=== PATIENT | female | born 1985 | race Caucasian/White ===

== ENCOUNTER 2023-09-02 21:15 | Observation (INO) ==
[2023-09-02] MEDS ORDERED: SODIUM CHLORIDE 0.9% 1,000 ML IV SCH (21:30)
--- NOTE | 2023-09-02 21:30 | Emergency Department Note ---
Impression & Plan Weakness, Fatigue, Tachycardia, Acute dehydration, POTS (postural orthostatic tachycardia syndrome) ED Provider Note NAME: ANTHONY DENNY AGE: 37 SEX: F : 1985 ARRIVES VIA: Ambulance INFORMANT: [Patient][mother] ED PROVIDER(S): [Luis Macias MD] CHIEF COMPLAINT: Weakness HISTORY OF PRESENT ILLNESS: The patient is a 37-year-old female who presents to the ER with extreme fatigue and weakness that has escalated especially in the last 2 days. She was diagnosed with POTS last year and she has been suffering from fatigue and weakness ever since. 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 The patient pretty much lies in bed most of the time. Her mother is caring for her currently although the patient does live separately from her mother. The patient had some chest pain and palpitations yesterday. She felt short of breath yesterday. Things persisted today and she was too weak to even function. She presents for evaluation. There has been no fever or stuffy nose, no cough, no vomiting or diarrhea, no urinary complaints. PMHx/PSHx/Social Hx: See Below PHYSICAL EXAM: GENERAL: Patient is in no acute distress. Wearing earmuffs and a mask. Has sunglasses in place. HEENT: No acute trauma, normocephalic atraumatic, mucous membranes moist, no nasal congestion. NECK: No stridor, no adenopathy, no meningismus, trachea is midline. LUNGS: Clear to auscultation bilaterally, no wheeze, no rhonchi, breath sounds equal. HEART: Mildly tachycardic, regular rhythm, no murmurs. ABDOMEN: Soft, nontender, no peritonitis. EXTREMITIES: No cyanosis, full range of motion of all the joints without pain or difficulty. NEUROLOGIC: Oriented x 3, no acute motor or sensory deficits, no focal weakness. SKIN: No jaundice, no diaphoresis. DIFFERENTIAL DIAGNOSIS: Dehydration, electrolyte imbalance, dysrhythmia, anemia, UTI, viral illness, thyroid disorder, among others. EMERGENCY DEPARTMENT PROCEDURES: MEDICAL DECISION MAKING: There is no leukocytosis. Patient's hemoglobin is higher than expected, possibly from dehydration. There was a normal platelet count. D-dimer testing was negative. With a negative D-dimer and my low suspicion for PE, I will stop the workup for this diagnosis. There was a subtle anion gap and a lower CO2, these findings of course could be from dehydration. No renal failure. Lactic acid level was not elevated making severe sepsis less likely. No concerning liver enzyme elevation. Total CK was not elevated making rhabdomyolysis unlikely. The patient appeared to be in a euthyroid state. testing was negative. The patient appeared to be in a euthyroid state. ECG showed a sinus tachycardia, no acute ischemia. Cardiac enzyme testing x 1 was not consistent with acute cardiac injury. Urinalysis showed ketones consistent with dehydration, no findings of infection. Lyme disease testing was negative. Chest x-ray did not show mediastinal widening, pneumonia or pneumothorax. On exam, the patient was tachycardic. The patient received IV saline, 1 L. She was given a 500 cc lactated Ringer's bolus. The patient presents with increasing fatigue to the point where she can no longer care for herself. She does seem dehydrated by exam and by laboratory testing. Given the circumstances, she will be hospitalized for further hydration and care. I spoke with the and case management, the on-call hospitalist was consulted. Prior/Outside records/notes reviewed: Today's EMS notes describing her presentation and the transport to this ER. ECG per my interpretation: Indication was weakness. The ECG shows a sinus tachycardia with a rate of 106. There is some nonspecific ST change. There is no ST elevation, no PVCs. The QTc is 470. Continuous Cardiac Monitoring per my interpretation: An order was placed for continuous cardiac monitoring. The monitor shows a rate of 109 with sinus tachycardia. Imaging/x-ray results per my interpretation: Chest x-ray does not show mediastinal widening, pneumonia or pneumothorax. Chronic Medical/Social conditions affecting care: Chronic fatigue. Care/Management discussed with: Case management, the on-call hospitalist. Level of care consideration(s): After review of the information above and other included data: --I believe the patient requires escalation of care to admission DISPOSITION: Admission Past Med/Surg History Medical History POTS (postural orthostatic tachycardia syndrome) Social History Smoking Status: Never smoker Preferred Language: Luxembourgish Feels Safe at Home: Yes Allergies Allergies Allergy/AdvReac Type Severity Reaction Status Date / Time codeine Allergy Unknown Verified 09/03/23 00:14 mahin Allergy Unknown Verified 09/03/23 00:14 nirmatrelvir [From Paxlovid] Allergy Unknown Verified 09/03/23 00:14 ritonavir [From Paxlovid] Allergy Unknown Verified 09/03/23 00:14 Home Meds Home Medications Medication Instructions Recorded Confirmed fludrocortisone 0.1 mg tablet 0.05 mg PO QAM 09/02/23 09/03/23 norethindrone (contraceptive) 0.35 0.35 mg PO QAM 09/02/23 09/03/23 mg tablet rimegepant 75 mg disintegrating 75 mg PO UD PRN Migraine Headache 09/02/23 09/02/23 tablet (Nurtec ODT) multivitamin (Multiple Vitamins 1 tab PO DAILY 09/03/23 09/03/23 tablet) Results & Data (ED) Vital Signs Vital Signs - 24 hr 09/02/23 21:20 09/02/23 21:20 09/02/23 21:20 Temperature 36.8 C Temperature Source Oral Pulse Rate 105 H Pulse Rate [Apical] 105 H Pulse Rhythm Regular Pulse Rhythm [Apical] Regular Pulse Strength Normal Pulse Strength [Apical] Normal Respiratory Rate 15 15 Respiratory Effort / Characteristics Non-Labored Spontaneous Non-Labored Accessory Muscle Use Respiratory Depth Normal Normal Respiratory Pattern Regular Regular Blood Pressure 132/87 Blood Pressure [Right Arm] 132/87 Blood Pressure Mean 102 Blood Pressure Mean [Right Arm] 102 Blood Pressure Position Semi-fowlers Blood Pressure Position [Right Arm] Semi-fowlers Pulse Oximetry 98 99 99 Oxygen Delivery Method Room Air Room Air Room Air Sepsis Recent Fever Within 48 Hours No Sepsis New/Unexplained Change in Mental Status N/A Sepsis Action Taken by Nursing No Action Required 09/02/23 21:37 09/02/23 21:38 09/02/23 23:02 Temperature Temperature Source Pulse Rate 105 H 100 H Pulse Rate [Apical] 92 H Pulse Rhythm Regular Pulse Rhythm [Apical] Regular Pulse Strength Pulse Strength [Apical] Normal Respiratory Rate 15 16 Respiratory Effort / Characteristics Non-Labored Spontaneous Respiratory Depth Normal Respiratory Pattern Regular Blood Pressure Blood Pressure [Right Arm] 132/89 Blood Pressure Mean Blood Pressure Mean [Right Arm] 103 Blood Pressure Position Blood Pressure Position [Right Arm] Lying Pulse Oximetry 99 97 Oxygen Delivery Method Room Air Room Air Sepsis Recent Fever Within 48 Hours Sepsis New/Unexplained Change in Mental Status Sepsis Action Taken by Custodial Medications Current Medication List: was personally reviewed by me Laboratory Data Attestation: I reviewed the patient's lab results. 09/02/23 21:26 09/02/23 21:26 Lab Results 09/02/23 09/02/23 09/03/23 Range/Units 21:26 21:33 00:49 WBC 7.94 (4.8-10.8) K/ul RBC 5.46 H (4.20-5.40) M/uL Hgb 16.3 H (12.0-16.0) g/dl Hct 47.4 H (37.0-47.0) % MCV 86.8 (80.0-100.0) fL MCH 29.9 (25.0-34.0) pg MCHC 34.4 (32.0-36.0) g/dL RDW Std Deviation 38.0 (36.4-46.3) fL RDW Coeff of Eddie 11.9 (11.5-14.5) % Plt Count 393 (130-400) K/uL MPV 10.0 (9.4-12.4) fL Immature Gran % (Auto) 0.5 % Neut % (Auto) 62.1 % Lymph % (Auto) 25.2 % [place] % (Auto) 8.9 % Eos % (Auto) 2.8 % Baso % (Auto) 0.5 % Neut # (Auto) 4.93 (1.40-6.50) K/uL Lymph # (Auto) 2.00 (1.20-3.40) K/uL [place] # (Auto) 0.71 H (0.11-0.59) K/uL Eos # (Auto) 0.22 (0.00-0.50) K/uL Baso # (Auto) 0.04 (0.00-0.20) K/uL Immature Gran # (Auto) 0.04 (0.01-0.20) K/uL D-Dimer < 190 (0-500) ug/L FEU Sodium 135 L (136-145) mmol/L Potassium 3.6 (3.5-5.1) mmol/L Chloride 103 (98-107) mmol/L Carbon Dioxide 15 L (21-32) mmol/L Anion Gap 17 H (3-11) BUN 15 (6-23) mg/dl Creatinine 1.03 (0.6-1.2) mg/dl Est Cr Clr Drug Dosing 64.9 ml/min Est GFR ( Amer) 80.4 ml/min Est GFR (Non-Af Amer) 69.4 ml/min BUN/Creatinine Ratio 14.6 (10-20) Glucose 93 (70-99(Fasting)) mg/dl Lactate 1.5 (0.4-2.0) mmol/L Calcium 9.0 (8.6-10.3) mg/dl Phosphorus 3.5 (2.5-4.9) mg/dl Magnesium 2.1 (1.7-2.4) mg/dl Total Bilirubin 0.5 (0.2-1.0) mg/dl AST 15 (13-39) U/L ALT 14 (7-52) U/L Alkaline Phosphatase 65 (34-104) U/L Total Creatine Kinase 38 (26-192) U/L Troponin I High Sens 6.1 (0-14) pg/ml Total Protein 7.4 (6.0-8.3) gm/dl Albumin 4.3 (3.4-5.0) gm/dl Globulin 3.1 (2.5-4.0) gm/dl Albumin/Globulin Ratio 1.4 (0.9-2) TSH 3.573 (0.300-4.500) uIu/ml HCG, Qual Negative (Negative) Urine Color Yellow Urine Appearance Clear (Clear) Urine pH 5.0 (4.5-7.5) Ur Specific [place] 1.010 (1.000-1.030) Urine Protein Negative (Negative) Urine Glucose (UA) Negative (Negative) Urine Ketones 3+ H (Negative) Urine Blood Negative (Negative) Urine Nitrite Negative (Negative) Urine Bilirubin Negative (Negative) Urine Urobilinogen Negative (Negative) Ur Leukocyte Esterase Trace H (Negative) Urine WBC (Auto) 1-5 (0-5) /hpf Urine RBC (Auto) 0-4 (0-4) /hpf U Hyaline Cast (Auto) 0 (0-5) /lpf U Epithel Cells (Auto) 10-20 H (0-5) /lpf Urine Bacteria (Auto) Negative (Negative) Lyme Disease IgG Ab Negative (Negative) Lyme Disease IgM Ab Negative (Negative) Administered Medications Discontinued Medications Sodium Chloride (Nss) 1,000 mls @ 999 mls/hr IV .Q1H1M VIGNESH Stop: 09/02/23 22:30 Last Infusion: 09/03/23 00:15 Dose: Infused Documented By: [email or web address] Admin: 09/02/23 22:16 Dose: 999 mls/hr Documented By: SPARKLE Lactated Ringer's (Lr) 500 mls @ 999 mls/hr IV .Q31M ONE Stop: 09/03/23 00:17 Last Infusion: 09/03/23 00:53 Dose: Infused Documented By: Admin: 09/02/23 23:54 Dose: 999 mls/hr Documented By: MAREK Discharge Plan Visit Data Chief Complaint: Weakness Stated Complaint: weakness ED Provider: Luis Macias Discharge Problem: Weakness, Fatigue, Tachycardia, Acute dehydration, POTS (postural orthostatic tachycardia syndrome) Patient Disposition: Admitted As Inpatient Condition: Fair Forms Stand Alone Forms: [facility] Prescriptions Prescriptions: No Action norethindrone (contraceptive) 0.35 mg tablet 0.35 mg PO QAM fludrocortisone 0.1 mg tablet 0.05 mg PO QAM Rx Instructions: takes half a tablet although ordered whole Nurtec ODT 75 mg tablet,disintegrating 75 mg PO UD PRN (Reason: Migraine Headache) multivitamin [Multiple Vitamins] Tablet 1 tab PO DAILY Referrals Referrals: PCP,NO [Physician] - Discharge Problem: Fatigue Qualifiers: Fatigue type: unspecified Qualified Code(s): R53.83 - Other fatigue
[2023-09-02 21:55] LABS: Basophils # (auto) 0.04 K/uL (0.00-0.20); Basophils % (auto) 0.5 %; Eosinophils # (auto) 0.22 K/uL (0.00-0.50); Eosinophils % (auto) 2.8 %; Hematocrit (blood only) 47.4 % (37.0-47.0); Hemoglobin 16.3 g/dl (12.0-16.0); Immature Granulocytes # (auto) 0.04 K/uL (0.01-0.20); Immature Granulocytes % (auto) 0.5 %; Lymphocytes % (auto) 25.2 %; Mean Corpuscular Hemoglobin 29.9 pg (25.0-34.0); Mean Corpuscular Hgb Conc 34.4 g/dL (32.0-36.0); Mean Corpuscular Volume 86.8 fL (80.0-100.0); Monocytes # (auto) 0.71 K/uL (0.11-0.59); Monocytes % (auto) 8.9 %; Neutrophils # (auto) 4.93 K/uL (1.40-6.50); Neutrophils % (auto) 62.1 %; Platelet Count 393 K/uL (130-400); RDW Coefficient of Variation 11.9 % (11.5-14.5); Red Blood Count 5.46 M/uL (4.20-5.40); White Blood Count 7.94 K/ul (4.8-10.8)
[2023-09-02 22:03] LABS: Albumin Globulin Ratio 1.4 (0.9-2); Albumin Level 4.3 gm/dl (3.4-5.0); BUN Creatinine Ratio 14.6 (10-20); Bilirubin,Total 0.5 mg/dl (0.2-1.0); Creatinine Clr Calc Pharmacy 64.9 ml/min; Est GFR (African American) 80.4 ml/min; Est GFR (Non-African American) 69.4 ml/min; Globulin 3.1 gm/dl (2.5-4.0); Magnesium 2.1 mg/dl (1.7-2.4); Phosphorus 3.5 mg/dl (2.5-4.9); Potassium 3.6 mmol/L (3.5-5.1); Total Protein 7.4 gm/dl (6.0-8.3)
[2023-09-02 22:04] LABS: Pregnancy Test, Serum Negative (Negative)
[2023-09-02 22:07] LABS: Troponin I High Sensitivity 6.1 pg/ml (0-14)
[2023-09-02 22:11] LABS: D Dimer < 190 ug/L FEU (0-500)
[2023-09-02 22:16] LABS: Thyroid Stimulating Hormone 3.573 uIu/ml (0.300-4.500)
[2023-09-02 22:49] LABS: Lyme Ab IgG w/WB Rflx Negative (Negative); Lyme Ab IgM w/WB Rflx Negative (Negative)
[2023-09-02] MEDS ORDERED: LACTATED RINGER'S 500 ML IV ONE (23:47)
[2023-09-03 01:06] LABS: Appearance Urine Clear (Clear); Bacteria Urine Automated Negative (Negative); Bilirubin Urine Negative (Negative); Blood Urine Negative (Negative); Cast Urine Automated 0 /lpf (0-5); Color Urine Yellow; Glucose Urine UA Negative (Negative); Ketones Urine 3+ (Negative); Leukocyte Esterase Urine Trace (Negative); Nitrite Urine Negative (Negative); Protein Urine Negative (Negative); RBC Urine Automated 0-4 /hpf (0-4); Urobilinogen Urine Negative (Negative)
--- NOTE | 2023-09-03 02:02 | History & Physical Report ---
Date of Service September 03, 2023 Assessment & Plan (1) POTS (postural orthostatic tachycardia syndrome): Plan: 38yo female with severe POTS and Chronic Fatigue presenting from home with inability to care for herself. She is very debilitated - spends her time at home in bed. Is very sensitive to light and sound. She has not been out of bed for several days - uses a bed pain. 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 Her mother has been taking care of her but has been unable as of late -Observation to medical -Will check CRP, B12, Folate B1 and ACTH -Continue hydration - LR at 80mL/hr x 2L -Thiamine 100mg IV daily -Vitamin C 500mg po daily -PT/OT evaluation -Continue home Fludrocortisone -Will initiate Methylphenidate 5mg po daily - this was recommended by her PCP - patient has been reluctant to start this due to concern for side effects. Is comfortable starting this medication while in a monitored setting -Mother will bring in patient's supplements from home to be taken here Patient takes D-ribose, Acetyl L-carnitine, Co-Q10 and Nepali Ginseng powder and extract as well as Magnesium, Cranberry and Vitamin C. Handwritten paper provided by patient's mother with detailed instructions. Patient has significant dietary intolerances. She mostly eats ketogenic diet but reports she tries to limit her intake to eggs, chicken, tuna, sauerkraut, peanut butter, almond butter, blueberries, kale, V8 juice keto/coconut yogurt, banana and canola oil Patient may benefit from referral to [facility] - [facility] or [facility]? (2) Weakness: Plan: Unsure if acute on chronic or simply chronic fatigue and weakness -As above, IVF with Thiamine and Vitamin C -Initiate Methylphenidate (3) Acute dehydration: Plan: Will provide IVF - LR at 80mL/hr x 2L Repeat labs in AM History of Present Illness Chief Complaint: chronic fatigue Primary Care Provider: DO Barbara Cortes Prakash is a 38yo female with history of POTS and Chronic Fatigue presenting from home with inability to care for herself. Marco A reports that she has very severe chronic fatigue syndrome which is likely secondary to long Covid - she had Covid for the second time in the Summer of 2021. She is very debilitated. She has significant photophobia as well as phonophobia. She has been unable to get out of bed or even sit on the commode for several days. Patient's mother has been taking care of her at home but is having some difficulty. Patient has had increased weakness as well as fatigue and nausea. She had a brief episode of elevated HR today to 141bpm with no associated chest pain, dizziness or syncope She has persistent nausea and poor appetite In the ER she is afebrile, HD stable Allergies Allergy/AdvReac Type Severity Reaction Status Date / Time codeine Allergy Unknown Verified 09/03/23 00:14 mahin Allergy Unknown Verified 09/03/23 00:14 nirmatrelvir [From Paxlovid] Allergy Unknown Verified 09/03/23 00:14 ritonavir [From Paxlovid] Allergy Unknown Verified 09/03/23 00:14 Home Medications Medication Instructions Recorded Confirmed Type fludrocortisone 0.1 mg tablet 0.05 mg PO QAM 09/02/23 09/03/23 History norethindrone (contraceptive) 0.35 0.35 mg PO QAM 09/02/23 09/03/23 History mg tablet rimegepant 75 mg disintegrating 75 mg PO UD PRN Migraine Headache 09/02/23 09/02/23 History tablet (Nurtec ODT) multivitamin (Multiple Vitamins 1 tab PO DAILY 09/03/23 09/03/23 History tablet) Past Med/Surg History Medical History POTS (postural orthostatic tachycardia syndrome) Surgical History (Updated 09/03/23 @ 05:01 by Amy Stack DO) History of dental surgery Family History (Updated 09/03/23 @ 05:01 by Amy Stack DO) Other Hypothyroid Social History (Updated 09/03/23 @ 05:02 by Amy Stack DO) Smoking Status: Never smoker Hx Alcohol Use: No Hx Substance Use: No Preferred Language: Sinhala Communication Ability: Effective Machine Bobbin Winder Required: No Beliefs That Will Affect Care: None Current Living Situation: Alone Current Living Situation Comment: Mom stays with her a lot Feels Safe at Home: Yes Assistive Devices: Glasses Review of Systems Review of Systems: All systems reviewed & are unremarkable except as noted in HPI & below Physical Exam Physical Exam: General: patient seen laying in supine position - noise cancelling headphones and sunglasses in place. She asks that we speak in low voices due to sound sensitivity Skin: warm, dry, intact, no rashes or lesions HEENT: NC/AT, PERRL, EOMI, anicteric sclera, conjunctiva without injection, external ear normal to inspection and nontender, nares patent, [id number] mask in place - patient prefers not to remove it, neck supple, trachea midline, no LAD, no thyromegaly, no JVD Heart: +S1/S2, regular, no m/r/g Lungs: equal air entry bilaterally, no rales/rhonchi/wheezes Abd: +BS, soft, NT/ND, no masses/organomegaly/ascites Ext: warm, 2+ pulses in UE/LE bilaterally, no clubbing/cyanosis or edema Neuro: severe generalized weakness Results & Data Results & Data Vital Signs (Past 12 Hours) Vital Signs Temp Pulse Pulse Resp BP BP Pulse Ox 09/03/23 01:32 74 09/02/23 23:02 92 H 16 132/89 97 09/02/23 21:38 100 H 09/02/23 21:37 105 H 15 99 09/02/23 21:20 36.8 C 105 H 15 132/87 99 09/02/23 21:20 99 09/02/23 21:20 105 H 15 132/87 98 O2 Del Method 09/03/23 01:32 09/02/23 23:02 Room Air 09/02/23 21:38 09/02/23 21:37 Room Air 09/02/23 21:20 Room Air 09/02/23 21:20 Room Air 09/02/23 21:20 Room Air Laboratory Results Laboratory Results WBC 7.94 K/ul (4.8-10.8) 09/02/23 21:26 RBC 5.46 M/uL (4.20-5.40) H 09/02/23 21:26 Hgb 16.3 g/dl (12.0-16.0) H 09/02/23 21:26 Hct 47.4 % (37.0-47.0) H 09/02/23 21:26 MCV 86.8 fL (80.0-100.0) 09/02/23 21:26 MCH 29.9 pg (25.0-34.0) 09/02/23: MCHC 34.4 g/dL (32.0-36.0) 09/02/23: RDW Std Deviation 38.0 fL (36.4-46.3) 09/02/23: RDW Coeff of Eddie 11.9 % (11.5-14.5) 09/02/23: Plt Count 393 K/uL (130-400) 09/02/23: MPV 10.0 fL (9.4-12.4) 09/02/23: Immature Gran % (Auto) 0.5 % 09/02/23: Neut % (Auto) 62.1 % 09/02/23: Lymph % (Auto) 25.2 % 09/02/23: [place] % (Auto) 8.9 % 09/02/23: Eos % (Auto) 2.8 % 09/02/23: Baso % (Auto) 0.5 % 09/02/23: Neut # (Auto) 4.93 K/uL (1.40-6.50) 09/02/23: Lymph # (Auto) 2.00 K/uL (1.20-3.40) 09/02/23: [place] # (Auto) 0.71 K/uL (0.11-0.59) H 09/02/23: Eos # (Auto) 0.22 K/uL (0.00-0.50) 09/02/23: Baso # (Auto) 0.04 K/uL (0.00-0.20) 09/02/23: Immature Gran # (Auto) 0.04 K/uL (0.01-0.20) 09/02/23: D-Dimer < 190 ug/L FEU (0-500) 09/02/23: Sodium 135 mmol/L (136-145) L 09/02/23: Potassium 3.6 mmol/L (3.5-5.1) 09/02/23: Chloride 103 mmol/L (98-107) 09/02/23: Carbon Dioxide 15 mmol/L (21-32) L 09/02/23: Anion Gap 17 (3-11) H 09/02/23: BUN 15 mg/dl (6-23) 09/02/23 21: Creatinine 1.03 mg/dl (0.6-1.2) 09/02/23: Est Cr Clr Drug Dosing 64.9 ml/min 09/02/23 21: Est GFR ( Amer) 80.4 ml/min 09/02/23: Est GFR (Non-Af Amer) 69.4 ml/min 09/02/23: BUN/Creatinine Ratio 14.6 (10-20) 09/02/23: Glucose 93 mg/dl (70-99(Fasting)) 09/02/23: Lactate 1.5 mmol/L (0.4-2.0) 09/02/23:33 Calcium 9.0 mg/dl (8.6-10.3) 09/02/23: Phosphorus 3.5 mg/dl (2.5-4.9) 09/02/23: Magnesium 2.1 mg/dl (1.7-2.4) 09/02/23: Total Bilirubin 0.5 mg/dl (0.2-1.0) 09/02/23: AST 15 U/L (13-39) 09/02/23: ALT 14 U/L (7-52) 09/02/23: Alkaline Phosphatase 65 U/L (34-104) 09/02/23 21: Total Creatine Kinase 38 U/L (26-192) 09/02/23 21: Troponin I High Sens 6.1 pg/ml (0-14) 09/02/23: Total Protein 7.4 gm/dl (6.0-8.3) 09/02/23: Albumin 4.3 gm/dl (3.4-5.0) 09/02/23: Globulin 3.1 gm/dl (2.5-4.0) 09/02/23: Albumin/Globulin Ratio 1.4 (0.9-2) 09/02/23: TSH 3.573 uIu/ml (0.300-4.500) 09/02/23 21: HCG, Qual Negative (Negative) 09/02/23 21: Urine Color Yellow 09/03/23 00:49 Urine Appearance Clear (Clear) 09/03/23 00:49 Urine pH 5.0 (4.5-7.5) 09/03/23 00:49 Ur Specific [place] 1.010 (1.000-1.030) 09/03/23 00:49 Urine Protein Negative (Negative) 09/03/23 00:49 Urine Glucose (UA) Negative (Negative) 09/03/23 00:49 Urine Ketones 3+ (Negative) H 09/03/23 00:49 Urine Blood Negative (Negative) 09/03/23 00:49 Urine Nitrite Negative (Negative) 09/03/23 00:49 Urine Bilirubin Negative (Negative) 09/03/23 00:49 Urine Urobilinogen Negative (Negative) 09/03/23 00:49 Ur Leukocyte Esterase Trace (Negative) H 09/03/23 00:49 Urine WBC (Auto) 1-5 /hpf (0-5) 09/03/23 00:49 Urine RBC (Auto) 0-4 /hpf (0-4) 09/03/23 00:49 U Hyaline Cast (Auto) 0 /lpf (0-5) 09/03/23 00:49 U Epithel Cells (Auto) 10-20 /lpf (0-5) H 09/03/23 00:49 Urine Bacteria (Auto) Negative (Negative) 09/03/23 00:49 Lyme Disease IgG Ab Negative (Negative) 09/02/23 21: Lyme Disease IgM Ab Negative (Negative) 09/02/23 21:26 Diagnostic Findings CXR with no acute process PG Care Time/CCT Total # of Minutes Spent Total Time Spent with Patient: Total time spent is greater than 50% in coordination of care (as documented) at patient's floor/unit and/or counseling patient: Coding Level of Care Code 82205 INT INP/OBS CARE 2/55MIN Diagnoses POTS (postural orthostatic tachycardia syndrome) G90.A Weakness R53.1 Acute dehydration E86.0
[2023-09-03] MEDS ORDERED: ACETAMINOPHEN 325 MG TAB PO PRN (04:30)
[2023-09-03] MEDS ORDERED: LACTATED RINGER'S 1,000 ML IV SCH (04:30)
[2023-09-03] MEDS ORDERED: ONDANSETRON INJ 2 MG/ML 2 ML VIAL IV PRN (04:30)
[2023-09-03 06:21] LABS: Folate (Folic Acid),Ser orPlas > 22.30 ng/ml (>5.38); Vitamin B12 745 pg/ml (180-914)
--- NOTE | 2023-09-03 07:13 | XRay Report ---
XR chest 1V portable HISTORY: 38 years-old Female weakness acute weakness COMPARISON: None TECHNIQUE: AP view of the chest FINDINGS: Cardiomediastinal and hilar silhouettes are within normal limits. No pneumothorax, pleural effusion, airspace consolidation or pulmonary edema. Bones of the chest appear normal. IMPRESSION: No acute process. ACT 112: Negative or not required by law. The above report was generated using voice recognition software. It may contain grammatical, syntax o r spelling errors. Electronically signed by: Flynn Roach M.D. 09/03/2023 7:11 AM
[2023-09-03] MEDS ORDERED: FLUDROCORTISONE ACETATE 0.1 MG TAB PO SCH (09:00)
[2023-09-03] MEDS ORDERED: THIAMINE HCL 100 MG TAB PO SCH (09:00)
[2023-09-03] MEDS ORDERED: ASCORBIC ACID 500 MG TAB PO SCH (09:00)
[2023-09-03] MEDS ORDERED: METHYLPHENIDATE HCL 5 MG TABLET PO SCH (09:00)
[2023-09-03] MEDS ORDERED: methylPREDNISolone 40 MG in SYRINGE 0 ML IV SCH (12:00)
[2023-09-03] MEDS ORDERED: PATIENT'S OWN ORAL CONTRACEPTIVE PO SCH (12:15)
[2023-09-03 13:34] LABS: Immunoglobulin A 292.2 mg/dl (70-400); Immunoglobulin G 1078.4 mg/dl (635-1741); Immunoglobulin M 129.3 mg/dl (45-281)
--- NOTE | 2023-09-03 13:47 | Discharge Summary ---
Date of Service September 03, 2023 Admission HPI Per Admitting Provider Barbara Randall is a 38yo female with history of POTS and Chronic Fatigue presenting from home with inability to care for herself. Marco A reports that she has very severe chronic fatigue syndrome which is likely secondary to long Covid - she had Covid for the second time in the Summer of 2021. She is very debilitated. She has significant photophobia as well as phonophobia. She has been unable to get out of bed or even sit on the commode for several days. Patient's mother has been taking care of her at home but is having some difficulty. Patient has had increased weakness as well as fatigue and nausea. She had a brief episode of elevated HR today to 141bpm with no associated chest pain, dizziness or syncope She has persistent nausea and poor appetite In the ER she is afebrile, HD stable Principal Diagnosis Volume depletion, failure to thrive, postural orthostatic tachycardia syndrome, long COVID syndrome Discharge Exam General-alert and oriented x3, no fevers, no chills HEENT-head atraumatic and normocephalic, pupils equal and reactive to light, extraocular muscles intact. Wearing sound deadening earphones and sunglasses Neck-no lymphadenopathy or thyromegaly, trachea midline Chest-clear to auscultation. No rales, wheezing or rhonchi Cardiac-regular rate and rhythm, normal S1 and S2 Abdomen-normal bowel sounds, nontender, no hepatosplenomegaly Extremities-no cyanosis, clubbing, or edema Neuro-cranial nerves II through XII intact, motor and sensory function within normal limits, strength symmetrical with generalized weakness, no focal deficits Psych-flat affect Discharge Data Allergies Allergy/AdvReac Type Severity Reaction Status Date / Time mahin Allergy Unknown Verified 09/03/23 08:38 codeine Allergy Rash Verified 09/03/23 08:38 nirmatrelvir [From Paxlovid] Allergy Unknown Verified 09/03/23 08:38 ritonavir [From Paxlovid] Allergy Unknown Verified 09/03/23 08:38 Consultations 09/03/23 00:37 ED Decision to Admit Stat Hospital Course (1) POTS (postural orthostatic tachycardia syndrome): Would not start Ritalin at this time due to recurrent tachycardia. Symptomatic care (2) Chronic [id number] syndrome: Lengthy discussion with mother and patient. They want to go home saying the hospital is just too noisy and busy for them. They will try a tapering dose of oral prednisone at discharge and continue multiple supplements they are currently taking. (3) Chronic fatigue: Supportive care. She refused OT and PT evaluation Plan Home today, September 03. Trial of prednisone tapering dose at discharge. Continue other supplements as before. Follow-up with PCP as soon as possible Total Time Total Time Spent Total Time Spent (In Minutes): 45 minutes Discharge Plan Discharge Items Patient Disposition: Home - Self-Care Reason For Visit: FATIGE, DEHYDRATION Discharge Diagnosis: Volume depletion, failure to thrive, post COVID syndrome Condition on Discharge: Fair Activity: Resume your previous activity Non-emergency contact: Primary Care Provider Call non-emergency contact if: you have any medication questions Follow-up/Referrals: Maia Amaro DO [Primary Care Provider] - Diet: Regular Addtl Attending Provider Instructions: Trial of prednisone tapering dose as directed Pending Studies at Discharge: Yes Studies:: Multiple lab tests are pending Stand-Alone Forms: [facility], Smoking Cessation Medications and DC Order Prescriptions: New prednisone 10 mg tablet See Rx Instructions .ROUTE .COMPLEX Qty: 12 0RF Rx Instructions: 10 mg orally 3 times a day for 2 days, then 10 mg twice a day for 2 days, then 10 mg once a day for 2 days, then stop Continued quercetin 500 mg capsule 500 mg PO DAILY magnesium citrate,mag oxide 250 mg capsule 250 mg PO DAILY vitamin b100 complex multivitamin 100 mg PO DAILY coenzyme Q10 100 mg capsule 100 mg PO DAILY curcumin-phosphatidylcholine 500 mg capsule 500 mg PO DAILY Rx Instructions: Tumeric diphenhydramine HCl [Benadryl Allergy] 25 mg tablet 25 mg PO QPM PRN (Reason: Sleep) Rx Instructions: uses to help reduce histamines from long covid. ascorbic acid (vitamin C) 1,000 mg PO BID Patient Comments: wants to know if 2000 mg is okay to take cholecalciferol (vitamin D3) 25 mcg PO DAILY melatonin 1 mg PO HS PRN (Reason: Sleep) norethindrone (contraceptive) 0.35 mg tablet 0.35 mg PO QAM fludrocortisone 0.1 mg tablet 0.05 mg PO QAM Rx Instructions: takes half a tablet although ordered whole Nurtec ODT 75 mg tablet,disintegrating 75 mg PO UD PRN (Reason: Migraine Headache) multivitamin [Multiple Vitamins] Tablet 1 tab PO DAILY Rx Instructions: prefers one with no iron cranberry 500 mg Capsule 500 mg PO .@LUNCH D-Ribofe 1,500 mg PO UD Rx Instructions: with breakfast and after lunch Acetyl L-Carnitine 500 mg PO DAILY ginseng 250 mg Capsule 250 mg PO DAILY Rx Instructions: 250 extract and 250 mg powder cyanocobalamin (vitamin B-12) 500 mg PO QAM Rx Instructions: drops in water fexofenadine 90 mg PO DAILY Discharge Orders: Discharge Order (Routine); Ordered 09/03/23 Ordered By: Italo Christie Admission Data Admit Date/Time: 09/03/23 02:02 Attending Provider: Italo Christie Admit Provider: Amy Stack Primary Care Provider: Maia Amaro Other Providers: Demetrice Grant; Amy Stack Coding Level of Care Code 52491 INP/OBS DISCH >30 MIN Diagnoses POTS (postural orthostatic tachycardia syndrome) G90.A Chronic [id number] syndrome U09.9 Chronic fatigue R53.82
--- NOTE | 2023-09-03 16:28 | Electrocardiogram Report ---
Test Reason : Blood Pressure : / mmHG Vent. Rate : 106 BPM Atrial Rate : 106 BPM P-R Int : 134 ms QRS Dur : 080 ms QT Int : 354 ms P-R-T Axes : 078 076 060 degrees QTc Int : 470 ms Sinus tachycardia Biatrial enlargement Nonspecific ST abnormality Abnormal ECG No previous ECGs available Confirmed by Rosalio Flowers ([id number]) on 09/03/2023 4:28:00 PM Referred By: REFERRED SELF Confirmed By:John Flowers
--- OUTSIDE RECORDS SUMMARY | 2023-09-03 22:52 | External Medical Summary | Continuity of Care Document ---
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 [id number] Date(s): 08/01/23 - 08/01/23 [facility] 0 [facility] [address] [facility], [facility] [address] [place] [address] [phone] Encounter Diagnosis Chronic fatigue syndrome(Discharge Diagnosis) - 08/01/23 Long COVID(Discharge Diagnosis) - 08/01/23 Discharge Disposition: Home or Self Care Attending Physician: MD Carson, Rogelio B Allergies, Adverse Reactions, Alerts Substance Reaction Severity Status codeine sore throat and rash Active mangoes unkown Active Assessment and Plan Extracted from: Title:Office Visit Note Author:DO Amaro Audrey Date:08/01/23 1.Chronic fatigue syndrome Wrote work excuse note for 6 months, discussed with patient and dad this may not be accepted, if needed they can have additional paperwork faxed over. For upcoming MRI prescribed ativan 0.5mg to be taking prior to MRI. Recommend patient wear ear plugs as well. For upcoming car trip to parents they may try dramamine, do not take benadryl at the same time. Discussed with patient she is already seeing specialists, I do not have additional tests to recommend at this time. Patient's dad to send in address of hyperbaric oxygen therapy to send script. Will discuss usage of duloxetine/venlafaxine or other psychiatric help further on patient portal. Patient's father requests to be called at [phone] 2.Long COVID Immunizations Given and Recorded Vaccine Date Status Refusal Reason influenza virus vaccine, inactivated 04/26/22 Give n influenza virus vaccine, inactivated 05/13/20 Paras rded influenza virus vaccine, inactivated 05/13/19 Paras rded influenza virus vaccine, inactivated 05/13/18 Paras rded SARS-CoV-2 (COVID-19) mRNA-1273 vaccine 07/13/21 R ecorded SARS-CoV-2 (COVID-19) mRNA BNT-162b2 vax 12/20/20 Recorded SARS-CoV-2 (COVID-19) mRNA BNT-162b2 vax 11/29/20 Recorded yellow fever vaccine 07/15/12 Recorded typhoid vaccine, inactivated 07/15/12 Recorded hepatitis A pediatric vaccine 07/15/12 Recorded hepatitis A pediatric vaccine 01/12/12 Recorded hepatitis B pediatric vaccine 01/12/12 Recorded tetanus/diphtheria/pertuss, acel (Tdap) 01/12/12 R ecorded human papillomavirus vaccine 06/13/06 Recorded meningococcal conjugate vaccine 01/17/03 Recorded poliovirus vaccine, inactivated 02/26/91 Recorded poliovirus vaccine, inactivated 1 02/10/91 Recorde d poliovirus vaccine, inactivated 04/01/87 Recorded poliovirus vaccine, inactivated 01/07/86 Recorded poliovirus vaccine, inactivated 85 Recorded diphtheria/tetanus/pertuss, acel (DTaP) 02/26/91 R ecorded diphtheria/tetanus/pertuss, acel (DTaP) 04/01/87 R ecorded diphtheria/tetanus/pertuss, acel (DTaP) 03/03/86 R ecorded diphtheria/tetanus/pertuss, acel (DTaP) 01/07/86 R ecorded diphtheria/tetanus/pertuss, acel (DTaP) 85 R ecorded mumps virus vaccine 02/10/91 Recorded measles virus vaccine 02/10/91 Recorded measles/mumps/rubella virus vaccine 12/07/86 Recor ded 1Result Comment: Oral polio vaccine Medications Adult Aspirin Start: 12/08/20 15:51:00 EDT Start Date: 12/08/20 Status: Ordered Emeli 12 Hour Allergy Start: 05/17/23 13:34:00 EDT Start Date: 05/17/23 Status: Ordered Benadryl Start: 12/19/21 16:05:00 EDT Start Date: 12/19/21 Status: Ordered Co Q-10 100 mg oral capsule Start: 09/21/22 12:58:00 EST, 1 cap, PO, Daily Start Date: 09/21/22 Status: Ordered famotidine Start: 05/17/23 13:34:00 EDT Start Date: 05/17/23 Status: Ordered Florinef Acetate 0.1 mg oral tablet Start: 01/25/23 15:32:00 EDT, 1 tab, PO, Daily, Disp# 30 tab, Refills: 3, Pharmacy: [id number] Start Date: 01/25/23 Status: Ordered LORazepam 0.5 mg oral tablet Start: 08/01/23 11:00:00 EST, 1 tab, PO, Daily, Disp# 1 tab, Refills: 0, Take prior to MRI, PRN: asneeded for anxiety, Pharmacy: [id number] Start Date: 08/01/23 Status: Ordered melatonin Start: 04/25/21 16:09:00 EDT, See Instructions, 2 mg q PM Start Date: 04/25/21 Status: Ordered multivitamin Start: 12/08/20 15:51:00 EDT, 1 tab, PO, Daily Start Date: 12/08/20 Status: Ordered naproxen Start: 12/08/20 15:52:00 EDT Start Date: 12/08/20 Status: Ordered norethindrone 0.35 mg oral tablet Start: 05/17/23 14:42:00 EDT, 1 tab, PO, Daily, Disp# 28 tab, Refills: 3, Note to Pharmacy: [facility] formulary, Pharmacy: [id number] Start Date: 05/17/23 Stop Date: 09/06/23 Status: Ordered Quecertin Start: 02/21/23 15:05:00 EDT, Quecertin Start Date: 02/21/23 Status: Ordered turmeric 500 mg oral capsule Start: 01/23/23 15:43:00 EDT Start Date: 01/23/23 Status: Ordered Vitamin C Start: 04/25/21 16:09:00 EDT Start Date: 04/25/21 Status: Ordered Vitamin D3 Start: 04/25/21 16:09:00 EDT Start Date: 04/25/21 Status: Ordered Mental Status 08/01/23 Barriers to Learning one year None evide nt Mandatory Health Literacy Documentation Yes Health Literacy Communication Barriers N ever Primary Language Northern Irish Problem List Condition Confirmation Course Effective Dates Status H ealth Status Informant Chronic fatigue syndrome Confirmed Active Long COVID Confirmed Active Post-COVID syndrome Confirmed Active Breathlessness Confirmed Active Fatigue Confirmed Active Menstrual cramp Confirmed Active Cervical pain (neck) Confirmed Active POTS (postural orthostatic tachycardia syndrome) Confirmed Active Sleep disorder Confirmed Active Diagnosis Diagnosis Type Effective Dates Health Status Cl inical Service Informant Chronic fatigue syndrome Discharge Diagnosis 08/01/23 Long COVID Discharge Diagnosis 08/01/23 Procedures Procedure Date Related Diagnosis Body Site Status Plain X-ray of lumbar spine 1 04/23/19 Completed 1impression overall maintained vertebral body and intervertebral disc space heights, without fracture. minimal retrolisthesis at the L2-L4 levels Social History Social History Type Response Smoking Status Never smoked cigaret mary jane Sex Female FCM Outpt Note * MD Carson, Rogelio Daniel: MODIFY MD Byrd Mark B: MODIFY Event Display: FCM Outpt Note Authored Date: Chief Complaint long covid needs updated FMLA History of Present Illness 37yo Female here for FMLA paperwork for long COVID chronic fatigue syndrome. Feels very low energy sensitive to noise requests that everyone whispers. Patient laying on the exam table with clipboard over head. Requests work release note for 4-6 months. Here today with father, father has been caring for her since . Patient brushing teeth daily, bathing upper body every 5-10 days, needs compression stockings on or she passes out. Father asks if dramamine will be useful getting patient on a 5 hour car ride back with her parents for care. Father also asked for something to help with the upcoming MRI. Patient complained of the following symptoms: burning headache, fatigue, muscle cramps in occiput, tingling burning behind nose, double vision, lights in peripheral vision, pain and rapid fatigue when speaking feels face is being pulled toward neck, tinnitis, inner ear pain b/l, exhaustion, chest pain, labored breathing, joint pain, burning in forearms and back of hands, numbness in abd, nausea, insomnia, greater susceptibility to stress and emotion. Patient asked if there's any other diseased to test for besides covid. Currently following Immunology more tests upcoming, following neurology who ordered MRI. Has Nurtec for migraines has not used. Patient states last time on duloxetine she had interesting side effects. Did not tolerate trazodone in the past lost her libido didn't help sleep. Currently now using acetylcarnitine as well. Patient denies drinking or smoking, denies cold flu symptoms, no recent travel. Having difficulty with activities of daily life. Rates pain 4/10 at base of occiput. Physical Exam General:ill appearingage appropriate calm cooperative Heart: RRR, +S1 S2, no murmurs/rubs/gallops Lungs: CTA b/l, no wheezes/rales/rhonchi Abd: soft, NT/ND, +BS Assessment/Plan 1.Chronic fatigue syndrome Wrote work excuse note for 6 months, discussed with patient and dad this may not be accepted, if needed they can have additional paperwork faxed over. For upcoming MRI prescribed ativan 0.5mg to be taking prior to MRI. Recommend patient wear ear plugs as well. For upcoming car trip to parents they may try dramamine, do not take benadryl at the same time. Discussed with patient she is already seeing specialists, I do not have additional tests to recommend at this time. Patient's dad to send in address of hyperbaric oxygen therapy to send script. Will discuss usageof duloxetine/venlafaxine or other psychiatric help further on patient portal. Patient's father requests to be called at [phone] 2.Long COVID Attestation I saw the patient and confirmed the singh portions of the history and physical exam and agree with the above impression and plan. Problem List/Past Medical History Ongoing Breathlessness Cervical pain (neck) Chronic fatigue syndrome Fatigue Long COVID Menstrual cramp Post-COVID syndrome POTS (postural orthostatic tachycardia syndrome) Sleep disorder Procedure/Surgical History Plain X-ray of lumbar spine (04/23/2019) Medications ascorbic acid(Vitamin C) aspirin(Adult Aspirin) cholecalciferol(Vitamin D3) diphenhydrAMINE(Benadryl) famotidine fexofenadine(Emeli 12 Hour Allergy) fludrocortisone(Florinef Acetate 0.1 mg oral tablet), 0.1 mg= 1 tab, PO, Daily, 3 refills LORazepam(LORazepam 0.5 mg oral tablet), 0.5 mg= 1 tab, PO, Daily, PRN melatonin, See Instructions multivitamin, 1 tab, PO, Daily naproxen norethindrone(norethindrone 0.35 mg oral tablet), 0.35 mg= 1 tab, PO, Daily, 3 refills turmeric(turmeric 500 mg oral capsule) ubiquinone(Co Q-10 100 mg oral capsule), 100 mg= 1 cap, PO, Daily unknown medication(Quecertin) Allergies codeinesore throat and rash mangoesunkown Social History Smoking Status Never smoked cigarettes Alcohol - Denies Alcohol Use Employment/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 Health Status Family Member(s) Immunizations Vaccine Date Status influenza virus vaccine, inactivated 04/26/2022 Given SARS-CoV-2 (COVID-19) mRNA-1273 vaccine 07/13/2021 Recorded SARS-CoV-2 (COVID-19) mRNA BNT-162b2 vax 12/20/2020 Recorded SARS-CoV-2 (COVID-19) mRNA BNT-162b2 vax 11/29/2020 Recorded influenza virus vaccine, inactivated 05/13/2020 Recorded influenza virus vaccine, inactivated 05/13/2019 Recorded influenza virus vaccine, inactivated 05/13/2018 Recorded yellow fever vaccine 07/15/2012 Recorded typhoid vaccine, inactivated 07/15/2012 Recorded hepatitis A pediatric vaccine 07/15/2012 Recorded hepatitis B pediatric vaccine 01/12/2012 Recorded hepatitis A pediatric vaccine 01/12/2012 Recorded tetanus/diphtheria/pertuss, acel (Tdap) 01/12/2012 Recorded human papillomavirus vaccine 06/13/2006 Recorded meningococcal conjugate vaccine 01/17/2003 Recorded poliovirus vaccine, inactivated 02/26/1991 Recorded diphtheria/tetanus/pertuss, acel (DTaP) 02/26/1991 Recorded mumps virus vaccine 02/10/1991 Recorded measles virus vaccine 02/10/1991 Recorded poliovirus vaccine, inactivated 02/10/1991 Recorded Comments : Oral polio vaccine poliovirus vaccine, inactivated 04/01/1987 Recorded diphtheria/tetanus/pertuss, acel (DTaP) 04/01/1987 Recorded measles/mumps/rubella virus vaccine 12/07/1986 Recorded diphtheria/tetanus/pertuss, acel (DTaP) 03/03/1986 Recorded poliovirus vaccine, inactivated 01/07/1986 Recorded diphtheria/tetanus/pertuss, acel (DTaP) 01/07/1986 Recorded poliovirus vaccine, inactivated 1985 Recorded diphtheria/tetanus/pertuss, acel (DTaP) 1985 Recorded Recommendations Health Maintenance Pending(in the next year) OverDue Adult Influenza Vaccine due02/10/23and every 1year Due Adult COVID-19 Vaccination due08/01/23Unknown Frequency Adult Folic Acid Supplementation due08/01/23and every 3year Adult Social Determinants of Health Screening due08/01/23Unknown Frequency Adult Tdap/Td Vaccine due08/01/23Unknown Frequency Cervical Cancer Screening due08/01/23Unknown Frequency Hepatitis C Screening due08/01/23One-time only Lipid Screening due08/01/23Unknown Frequency Pneumococcal Vaccine Adults and Adolescents with Chronic Illness due08/01/23One-time only Shingles Vaccine due08/01/23One-time only Due In Future Body Mass Index not due until05/17/24and every 366day Satisfied(in the past 1 year) Satisfied Body Mass Index on05/17/23.Satisfied by WEI Cisneros Emma Electronic Signature on File Electronically Reviewed/Signed by: Maia Amaro DO Author Signature Dt/Tm:08/01/2023 11:49 AM Resident Department of Family Medicine Electronically Reviewed/Signed by: Rogelio Byrd MD Cosigner Signature Dt/Tm: 08/01/2023 05:14 PM Department of Family Medicine AD Patient Care team information Care Team Personnel Name: DO Alarcon Franklin J Position: Physician - Family Med Member Role: Primary Care Provider Address: Address: [address] [address] Care Team Related Persons Name: BRENDA DENNY Name: LINDA DENNY
--- OUTSIDE RECORDS SUMMARY | 2023-09-03 22:52 | External Medical Summary | Continuity of Care Document ---
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 Name Role Phone Dio Alarcon Primary Care Physician [phone] Encounter [facility] [id number] Date(s): 08/16/23 - 08/16/23 [facility] 0 [facility] [address] [facility], [facility] [address] [place] [address] [phone] Encounter Diagnosis Chronic fatigue syndrome(Discharge Diagnosis) - 08/16/23 Discharge Disposition: Home or Self Care Attending Physician: DO Alarcon Franklin J Allergies, Adverse Reactions, Alerts Substance Reaction Severity Status codeine sore throat and rash Active mangoes unkown Active Assessment and Plan Extracted from: Title:TeleHealth Visit Note Author:DO Amaro Aud rey Date:08/16/23 1.Chronic fatigue syndrome At this time I feel there is a large psychiatric component involved in patient's condition, however also concerned given patient's increasingly low energy, food intake, and involvement in day to day activities. Discussed with patient's father the following: try ensure dairy free ordered methylphenidate 10mg BID 2 weeks (considered hydrocortisone, however given lower evidence and concern low food intake may not be the best option) patient to go to ED if no water intake/no urine output f/u in 2 weeks to reassess Discussed possible use of venlafaxine when patient's condition improves Immunizations Given and Recorded Vaccine Date Status [...] Daily, Disp# 30 tab, Refills: 3, Pharmacy: [id number] Start Date: 01/25/23 Status: Ordered LORazepam 0.5 mg oral tablet Start: 08/01/23 11:00:00 EST, 1 tab, PO, Daily, Disp# 1 tab, Refills: 0, Take prior to MRI, PRN: asneeded for anxiety, Pharmacy: [id number] Start Date: 08/01/23 Status: Ordered melatonin Start: 04/25/21 16:09:00 EDT, See Instructions, 2 mg q PM Start Date: 04/25/21 Status: Ordered methylphenidate 10 mg oral tablet Start: 08/16/23 17:03:00 EST, 1 tab, PO, bid, Disp# 28 tab, Refills: 0, Pharmacy: [id number] Start Date: 08/16/23 Stop Date: 08/30/23 Status: Ordered multivitamin Start: 12/08/20 15:51:00 EDT, 1 tab, PO, Daily Start Date: 12/08/20 Status: Ordered naproxen Start: 12/08/20 15:52:00 EDT Start Date: 12/08/20 Status: Ordered norethindrone 0.35 mg oral tablet Start: 05/17/23 14:42:00 EDT, 1 tab, PO, Daily, Disp# 28 tab, Refills: 3, Note to Pharmacy: [facility] formulary, Pharmacy: [id number] Start Date: 05/17/23 Stop Date: 09/06/23 Status: Ordered Quecertin Start: 02/21/23 15:05:00 EDT, Quecertin Start Date: 02/21/23 Status: Ordered turmeric 500 mg oral capsule Start: 01/23/23 15:43:00 EDT Start Date: 01/23/23 Status: Ordered Vitamin C Start: 04/25/21 16:09:00 EDT Start Date: 04/25/21 Status: Ordered Vitamin D3 Start: 04/25/21 16:09:00 EDT Start Date: 04/25/21 Status: Ordered Mental Status 1/4/24 Barriers to Learning one year None evide nt Mandatory Health Literacy Documentation Yes Health Literacy Communication Barriers N ever Primary Language Spanish Problem List Condition Confirmation Course Effective Dates [...] Service Informant Chronic fatigue syndrome Discharge Diagnosis 08/16/23 Procedures Procedure Date Related Diagnosis Body Site Status Plain X-ray of lumbar spine 1 04/23/19 Completed 1impression overall maintained vertebral body and intervertebral disc space heights, without fracture. minimal retrolisthesis at the L2-L4 levels Social History Social History Type Response Smoking Status Never smoked cigaret mary jane Sex Female FCM Outpt Note * DO Alarcon Franklin J: MODIFY DO Alarcon Franklin J: MODIFY Event Display: FCM Outpt Note Authored Date: TeleHealth Visit Note I have confirmed the patients name and date of . The patient has consented to this service,and I have advised the patient that this is a billable visit for which they may be subject to a copay. [ x_ ] The patient has initiated this visit after he/she was informed of the availability of telehealth for this medically necessary visit. [ _ ] The provider initiated this visit after explaining the need for this visit to the patient, who has consented to this virtual visit. I am located at my: [ _x ] Office [ _ ] Home [ _ ] Other: _ The patient is located at: [ x_ ] Home [ _ ] Other: _ This visit was conducted via live audio/video technology: [ x_ ] [facility] [ _ ] Zoom This visit was conducted via [ _ ] Telephone, and was not related to a visit or procedure that occurred within the past 7 days. Telephone Only Visit: Reason for audio only visit was [ _ ] no internet connection available [ _ ] Other: _. Total time spent communicating with the patient: 50_ minutes Chief Complaint C/O chronic fatiuge History of Present Illness 37yo Female here for chronic fatigue syndrome Most of visit information from dad, patient present in room. Patient still not tolerating loud noises or lights Had a crash following last office visit 2 days after. Has gotten so week couldn't feed herself, dadspoon feeding her. Then that wasn't working, in last few days issues turned into how she should getnutrition. Patient passed on message she feels weird and bad when she eats, brain fog burning headache whole body bad feeling, gets nonspecific pain, prickly tired feeling behind eyes, needs everything to be dark. Seems like it's carbs that cause reactions. Is trying a ketogenic diet. Worst in evening, skipped evening meal 08/12 and 08/13- 08/14. Mcdonald bad started shaking bp 130/85, then second shakingepisode in middle of the night. Thought it was a cortisol omalley, next day was able to eat, wonders if she has neuroinflammation. Knows she needs to eat, trying to get her salt in. Today thinks she can get her caloric needs through olive oil, peanut butter, chicken banana's, fruit. For a while has not felt as thirsty as she should, fatigue has gotten worse, not propping head up to eat. Heart and chest feel weak and fluttery when she lays on her side, right side feels numb, feels breathing is labored, dad noticed she has a slight cough. She says her body really wants to breaththrough her mouth, she's trying to drink less because she wants more salt. No vomiting, no complaint of nausea, hasn't tried any pain medications Her questions: Because scare with shakes at night, wondered if she should go to hospital, but worried she would crash again. Wondered if she should go to ER. Mcdonald it was neuroinflammation. However because that excitement gave her a mild boost the next day, wondered if there was a medication that could reduce her inflammation. Dad wants to know how to get more food in her Physical Exam General: patient laying on couch with eyes covered, waves when prompted Assessment/Plan 1.Chronic fatigue syndrome At this time I feel there is a large psychiatric component involved in patient's condition, howeveralso concerned given patient's increasingly low energy, food intake, and involvement in day to day activities. Discussed with patient's father the following: try ensure dairy free ordered methylphenidate 10mg BID 2 weeks (considered hydrocortisone, however given lower evidence and concern low food intake may not be the best option) patient to go to ED if no water intake/no urine output f/u in 2 weeks to reassess Discussed possible use of venlafaxine when patient's condition improves Attestation I alsoparticipated in the telehealth visitand confirmed singh portions of the clinical history.Physical examwas not completed due to a telehealth visit; majority of time spent in conversation with the patient's father. Complicated history of both chronic fatigue syndromeandpost-COVIDsyndrome; she had a diagnosis of chronic fatigueprior to 2019. [facility] I would like to see the patient in the office; discussed that televisitscertainly have limitations. I think a trial of methylphenidate 10 mg twice dailyis reasonable. Agree with the impression and plan as noted above Problem List/Past Medical History Ongoing Breathlessness Cervical [...] tab, PO, Daily, PRN melatonin, See Instructions methylphenidate(methylphenidate 10 mg oral tablet), 10 mg= 1 tab, PO, bid multivitamin, 1 tab, PO, Daily naproxen norethindrone(norethindrone 0.35 mg oral tablet), 0.35 mg= 1 tab, PO, Daily, 3 refills turmeric(turmeric 500 mg oral capsule) ubiquinone(Co Q-10 100 mg oral capsule), 100 mg= 1 cap, PO, Daily unknown medication(Quecertin) Allergies codeinesore throat and rash mangoesunkown Social History Smoking Status Never smoked cigarettes Alcohol - Denies Alcohol Use 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 Exercise Exercise type:Walking Sexual [...] the next year) OverDue Adult Influenza Vaccine due02/09/23and every 1year Due Adult COVID-19 Vaccination due08/16/23Unknown Frequency Adult Folic Acid Supplementation due08/16/23and every 3year Adult Social Determinants of Health Screening due08/16/23Unknown Frequency Adult Tdap/Td Vaccine due08/16/23Unknown Frequency Cervical Cancer Screening due08/16/23Unknown Frequency Hepatitis C Screening due08/16/23One-time only Lipid Screening due08/16/23Unknown Frequency Pneumococcal Vaccine Adults and Adolescents with Chronic Illness due08/16/23One-time only Shingles Vaccine due08/16/23One-time only Due In Future Body Mass Index not due until05/17/24and every 366day Satisfied(in the past 1 year) Satisfied Body Mass Index on05/17/23.Satisfied by WEI Cisneros Emma Electronic Signature on File Electronically Reviewed/Signed by: Maia Amaro DO Author Signature Dt/Tm:08/16/2023 05:52 PM Resident Department of Family Medicine Electronically Reviewed/Signed by: Dio Alarcon DO Cosigner Signature Dt/Tm: 08/17/2023 05:33PM Department of Family Medicine AD Patient Care team information Care Team Personnel Name: DO Alarcon Franklin J Position: Physician - Family Med Member Role: Primary Care Provider Address: Address: [address] Care Team Related Persons Name: BRENDA DENNY Name: LINDA DENNY
== END 2023-09-03 15:54 | disposition home health service (06) ==
LOC: 3E 21:15 → ED 21:15 → MERGE 09-03 02:02 → SUATTDRO 09-03 02:02 → 3E 09-03 03:58